=== PATIENT | female | born 1955 | race Caucasian/White ===

== ENCOUNTER 2021-03-05 07:33 | Outpatient (CLI) | payer MEDICARE, SELFPAY ==
--- NOTE | ~2021-03-05 | MR_ITS ---
EXAMINATION: MR foot LT wo con DATE: 03/05/2021 08:21 INDICATION: Left foot pain and swelling post injury 3 weeks prior TECHNIQUE: Magnetic resonance imaging (MRI) of the left fore/mid foot was performed without intraveno us contrast. Sequences included sagittal T1-weighted FSE, sagittal fluid sensitive FSE STIR, coronal PD-weighted FS FSE, coronal T1-weighted FSE, axial PD-weighted FS FSE, and axial PD-weighted FSE. COMPARISON: None FINDINGS: Bones/other: Prominent marrow edema at the cuboid surrounding a nondisplaced oblique intra-articular fracture at t he posterior medial corner of the cuboid. No significant fracture gap or step-off at the articular mosqueda rface of the calcaneocuboid joint. There is juxtaposed bone contusion without discrete fracture at th e lateral aspect of the anterior process of the calcaneus. Marrow edema surrounding a curvilinear sub cortical likely impaction fracture at the inferomedial aspect of the head of the talus. Finally there is mild marrow edema surrounding an additional curvilinear trabecular fracture line at the medial as pect of the posterior talus lying cephalad to the sustentaculum jennifer. No pathologic marrow replacing process. 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 The Lisfranc li gament is normal. Medial ankle ligaments: Deep and superficial deltoid ligaments as well as the spring ligament are normal. Lateral ankle ligaments: The anterior and posterior inferior tibiofibular ligaments are normal. The anterior talofibular, calc aneofibular and posterior talofibular ligaments are normal. Tendons: Achilles tendon is normal. The peroneus longus and brevis tendons are normal. The tibialis anterior a nd extensor hallucis longus and extensor digitorum longus tendons are normal. The tibialis posterior, flexor digitorum longus and flexor hallucis longus tendons are normal. Plantar fascia: Mild thickening without appreciable increased signal at the proximal plantar aponeurosis and small pl loly calcaneal spur consistent with mild chronic enthesopathy. No associated increased fluid signal to suggest acute plantar fasciitis. Fluid: Physiologic amount of fluid in the joint spaces. Extensive mild soft tissue edema at the ankle and ov er the dorsal and lateral aspect of the midfoot. IMPRESSION: 1. Multiple nondisplaced fractures including intra-articular fracture at the cuboid and impaction fra ctures at the head of the talus and at the medial process of the posterior talus. Additional bone con tusion without discrete fracture at the anterior process of the calcaneus. Reviewed, dictated and finalized at location A. IMPRESSION: 1. Multiple nondisplaced fractures including intra-articular fracture at the cu boid and impaction fractures at the head of the talus and at the medial process of the posterior talus. Additional bone contusion without discrete fracture at the anterior process of the calcaneus.
== END 2021-03-05 07:34 | disposition home or self-care (01) ==
PROVIDERS: PCP Internal Medicine; Visit Provider Internal Medicine
DX: M79.89 Other specified soft tissue disorders (principal); M79.672 Pain in left foot; S92.125A Nondisplaced fracture of body of left talus, initial encounter for closed fracture; S90.02XA Contusion of left ankle, initial encounter
CPT/HCPCS: 73718